=== PATIENT | male | born 1990 | race Caucasian/White ===

== ENCOUNTER 2020-07-13 21:07 | Emergency (ER) | payer OTHER ==
[2020-07-13 21:27] VITALS: BP 124/76; PULSE 108; TEMP 98.1; BMI 31.8
[2020-07-13] MEDS ORDERED: KETOROLAC TROMETHAMINE 30 MG/1 ML VIAL IM ONE (21:27)
[2020-07-13] MEDS ORDERED: LIDOCAINE 5% TOPICAL PATCH TP ONE (21:27)
[2020-07-13] MEDS ORDERED: LIDOCAINE 5% TOPICAL PATCH ONE (21:47)
[2020-07-13] MEDS ORDERED: KETOROLAC TROMETHAMINE 30 MG/1 ML VIAL ONE (21:47)
[2020-07-14] MEDS ORDERED: LIDOCAINE PATCH REMOVAL MC SCH (10:00)
== END 2020-07-13 22:19 | disposition home or self-care (01) ==
LOC: JER 21:07
PROC: 3E0233Z Introduction of Anti-inflammatory into Muscle, Percutaneous Approach (ICD-10-PCS; principal; 2020-07-13)
DX: M25.562 Pain in left knee (principal)
CPT/HCPCS: 73562-TC-LT-FY; 99284-25